=== PATIENT | male | born 1935 | race Caucasian/White ===

== ENCOUNTER 2018-12-01 01:46 | Inpatient (IN) | payer MEDICARE ==
[~2018-12-01] VITALS: Ht 172.7 cm; Wt 84.4 kg
--- NOTE | 2018-12-01 01:46 | NUR ---
PT BIB [facility] WITH A C/O FEVER. PT IS TACHY AND WARM TO THE TOUCH. PT IS ON THE MONITOR AND CONTINUOUS PULSE OX. PT HAS A UROSTOMY BAG. PT HAS HX OF BLADDER AND COLON CA. PT IS AA&OX4. DR. VALENTE IS AT THE BEDSIDE. PT HAS AN 18G IV IN THE RT HAND ICT SUPPORT AND TEST ENGINEERS. 1 L NS INFUSING FROM RESCUE.
--- NOTE | 2018-12-01 01:50 | NUR ---
TYLENOL HELD PER MD UNTIL WE CAN CONFIRM WITH HIS RE: TYLENOL ALLERGY. PT IS DENYING TYLENOL ALLERGY AT THIS TIME.
--- NOTE | 2018-12-01 01:50 | NUR ---
RECTAL TEMP TAKEN. PT TEMP IS 104.5F. COOLING MEASURES DONE. ICE PACKS BILATERAL AXILLA AND COOL FACECLOTHS TO PT'S FOREHEAD.
--- NOTE | 2018-12-01 01:55 | NUR ---
XRAY IN PROGRESS AT THE BEDSIDE.
[2018-12-01] MEDS ORDERED: IBUPROFEN 400 MG TABLET ONE (01:58)
[2018-12-01] MEDS ORDERED: ACETAMINOPHEN ES 500 MG TABLET ONE (01:58)
[2018-12-01] MEDS ORDERED: IBUPROFEN 400 MG TABLET PO ONE (02:00)
[2018-12-01] MEDS ORDERED: ACETAMINOPHEN ES 500 MG TABLET PO ONE (02:00)
[2018-12-01] MEDS ORDERED: IV NS 0.9% 1,000 ML BAG IV ONE ×2 (02:00)
[2018-12-01] MEDS ORDERED: CEFTRIAXONE 1GM BAG (ER ONLY) 1 GM/50 ML PIGGYBACK IV ONE (02:00)
--- NOTE | 2018-12-01 02:00 | NUR ---
DAYLIGHT SAVINGS TIME. TIME CHANGED TO 0300.
[2018-12-01] MEDS ORDERED: CEFTRIAXONE 1GM BAG (ER ONLY) 50 ML IV ONE (03:07)
[2018-12-01 03:13] LABS: APPEARANCE,URINE CLEAR (CLEAR); BILIRUBIN,URINE NEGATIVE (NEGATIVE); BLOOD, URINE 2+ Ery/uL (NEGATIVE); COLOR,URINE YELLOW (YELLOW); KETONES,URINE 1+ (NEGATIVE); LEUKOCYTE ESTERASE ,URINE 3+ (NEGATIVE); NITRITE, URINE POSITIVE (NEGATIVE); PROTEIN,URINE 2+ mg/dl (NEGATIVE); UGLUCOSE NEGATIVE (NEGATIVE); UROBILINOGEN,URINE 0.2 EU/dL (0.2)
--- NOTE | 2018-12-01 03:13 | NUR ---
PT LEFT FOR CT VIA GURNEY.
[2018-12-01 03:14] LABS: BASOPHILS % (AUTO) 0.3 % (0.0-2.0); HEMATOCRIT 39 % (39-51); HEMOGLOBIN 13.2 g/dL (13.5-17.5); LYMPHOCYTES # (AUTO) 0.5 /CMM (0.8-4.8); LYMPHOCYTES % (AUTO) 3.1 % (20.0-44.0); MEAN CORPUSCULAR HGB CONC 33 g/dl (31.0-36.0); MEAN CORPUSCULAR VOLUME 94 fL (80-96); MONOCYTES # (AUTO) 0.7 /CMM (0.1-1.30); NEUTROPHILS # (AUTO) 13.4 /CMM (1.8-8.9); NEUTROPHILS % (AUTO) 91.6 % (43.0-81.0); PLATELET COUNT (AUTO) 152 /CMM (150-450); RED BLOOD CELL COUNT(AUTO) 4.19 MIL/uL (4.5-6.0); WHITE BLOOD COUNT (AUTO) 14.6 K/uL (4.3-11.0)
[2018-12-01 03:19] LABS: BACTERIA,URINE Moderate /HPF (None Seen); SQUAMOUS EPITHELIAL CELL,UR Few /HPF (None Seen); WBC,URINE 21-50 /HPF (0-3)
[2018-12-01 03:21] LABS: CALCIUM, SERUM 8.4 mg/dL (8.5-10.1); CARBON DIOXIDE 22 mmol/L (21-32); CHLORIDE 105 mmol/L (98-107); CREATININE 1.5 mg/dL (0.6-1.3); GLUCOSE 114 mg/dL (74-106); POTASSIUM 3.4 mmol/L (3.5-5.1); SODIUM SERUM 138 mmol/L (136-145); UREA NITROGEN, BLOOD 25 mg/dL (7-18)
[2018-12-01 03:27] LABS: ALANINE AMINOTRANSFERASE 18 U/L (12-78); ALBUMIN 2.9 g/dL (3.4-5.0); ALKALINE PHOSPHATASE 61 U/L (46-116); ASPARTATE AMINOTRANSFERASE 20 U/L (15-37); BILIRUBIN,DIRECT 0.4 mg/dL (0.0-0.2); BILIRUBIN,TOTAL 1.4 mg/dL (0.2-1.0); TOTAL PROTEIN, SERUM 6.5 g/dL (6.4-8.2)
--- NOTE | 2018-12-01 03:30 | NUR ---
PT RETURNED FROM CT.
--- NOTE | 2018-12-01 03:46 | NUR ---
EMPTIED PT'S UROSTOMY BAG. APPROX 250ML YELLOW URINE OUTPUT NOTED.
--- NOTE | 2018-12-01 03:48 | NUR ---
BED ASSIGNED ONE HUNDRED AND SEVENTEEN, BED ONE.
[2018-12-01] MEDS ORDERED: ASPIRIN 325 MG TABLET ONE (03:55)
[2018-12-01] MEDS ORDERED: IBUPROFEN 400 MG TABLET PO PRN (04:00)
[2018-12-01] MEDS ORDERED: MAGNESIUM HYDROXIDE 30 ML UDC PO PRN (04:00)
[2018-12-01] MEDS ORDERED: ZOLPIDEM TARTRATE 5 MG TABLET PO PRN (04:00)
[2018-12-01] MEDS ORDERED: ONDANSETRON HCL/PF 4 MG/2 ML VIAL IVP PRN (04:00)
[2018-12-01] MEDS ORDERED: Z GUARD REMEDY 2 OZ OINT TP PRN (04:00)
[2018-12-01] MEDS ORDERED: ASPIRIN 325 MG TABLET PO ONE (04:00)
[2018-12-01] MEDS ORDERED: POTASSIUM CHLORIDE 20 MEQ TAB.PRT.SR PO ONE (04:00)
--- NOTE | 2018-12-01 04:12 | NUR ---
CALLING REPORT TO KARL NURSE.
--- NOTE | 2018-12-01 04:13 | NUR ---
REPORT GIVEN TO UMER BRITO
[2018-12-01 04:58] VITALS: BP 111/58
[2018-12-01] MEDS: IV NS 0.9% 1,000 ML IV PRN ×2 (05:38→17:10)
[2018-12-01 08:00] VITALS: BP_SYST 104; BP_SYST 107; BP_DIAS 58
[2018-12-01 08:34] LABS: BASOPHILS % (AUTO) 0.1 % (0.0-2.0); HEMATOCRIT 39 % (39-51); HEMOGLOBIN 12.8 g/dL (13.5-17.5); LYMPHOCYTES # (AUTO) 0.6 /CMM (0.8-4.8); MEAN CORPUSCULAR HGB CONC 33 g/dl (31.0-36.0); MEAN CORPUSCULAR VOLUME 95 fL (80-96); MONOCYTES # (AUTO) 1.1 /CMM (0.1-1.30); MONOCYTES % (AUTO) 7.4 % (2.0-12.0); NEUTROPHILS # (AUTO) 12.6 /CMM (1.8-8.9); NEUTROPHILS % (AUTO) 88.5 % (43.0-81.0); PLATELET COUNT (AUTO) 137 /CMM (150-450); RED BLOOD CELL COUNT(AUTO) 4.05 MIL/uL (4.5-6.0); WHITE BLOOD COUNT (AUTO) 14.3 K/uL (4.3-11.0)
[2018-12-01 08:50] LABS: CALCIUM, SERUM 7.6 mg/dL (8.5-10.1); CARBON DIOXIDE 21 mmol/L (21-32); CHLORIDE 108 mmol/L (98-107); CHOLESTEROL 99 mg/dL (<200); CREATININE 1.6 mg/dL (0.6-1.3); GLUCOSE 190 mg/dL (74-106); HDL CHOLESTEROL 46 mg/dL (40-60); LDL 50 mg/dL (0-99); MAGNESIUM 1.7 mg/dL (1.8-2.4); PHOSPHORUS 3.7 mg/dL (2.5-4.9); POTASSIUM 3.8 mmol/L (3.5-5.1); SODIUM SERUM 139 mmol/L (136-145); TRIGLYCERIDES 43 mg/dL (30-150); UREA NITROGEN, BLOOD 24 mg/dL (7-18)
[2018-12-01] MEDS: Magnesium 1GM/D5W 100ML PREMIX 100 ML IV SCH ×2 (11:17→13:25)
[2018-12-01 11:42] LABS: THYROID STIMULATING HORMONE 1.076 uIU/mL (0.358-3.74)
[2018-12-01 12:00] VITALS: BP 126/60
[2018-12-01] MEDS: ENOXAPARIN SODIUM 40 MG/0.4 ML DISP.SYRIN SQ SCH (12:40)
[2018-12-01] MEDS ORDERED: hydrALAZINE HCL 25 MG TABLET PO SCH (13:00)
[2018-12-01 13:11] LABS: CREATININE, URINE 89.4 MG/DL (30.0-125.0)
[2018-12-01] MEDS ORDERED: hydrALAZINE HCL 25 MG TABLET PO PRN (14:00)
[2018-12-01 16:00] VITALS: BP 124/71
[2018-12-01] MEDS ORDERED: POLYVINYL ALCOHOL 15 ML BOTTLE EACHEYE PRN (16:30)
[2018-12-01] MEDS ORDERED: FERROUS SULFATE (325 MG) 325 MG/TAB TABLET PO SCH (17:00)
[2018-12-01] MEDS ORDERED: GABA-532 PO (17:54)
[2018-12-01] MEDS ORDERED: UNK BP MEDICATION PO (17:55)
[2018-12-01 20:00] VITALS: BP_SYST 127; BP_SYST 148; BP_DIAS 75; BP_DIAS 76
[2018-12-01] MEDS ORDERED: ACETAMINOPHEN 325 MG TABLET PO PRN (20:30)
--- NOTE | 2018-12-01 20:30 | NUR ---
SORTING MACHINE ATTENDANT NOTES, PATIENT IN BED AWAKE A/O X4 CHIQUI TO VERBALIZED NEEDS, BREATHING EVEN AND UNLABORED, NO SOB/ACUTE DISTRESS NOTED, IV ACCESS IN RIGHT HAND PATENT AND INTACT, NS 0.9% INFUSING WELL AND PATIENT TOLERATED WELL, WITH TEMP 100.9 NOTED, WILL INFORM MD FOR NEW ORDERS, NOTED UROSTOMY IN PLACE WITH ABOU 100ML OF URINE IN PLACED, BED LOCKED AND IN LOW POSITION, CALL LIGHT W/I REACH, ALL NEEDS PROVIDED, WILL CONTINUE TO MONITOR CLOSELY, INFORMED PATIENT MARION WILL BE NPO FOR TESTS IN THE MORNING AND VERBALIZED UNDERSTANDING.
[2018-12-01] MEDS ORDERED: CEFTRIAXONE 1 G VIAL ONE (20:32)
--- NOTE | 2018-12-01 20:45 | NUR ---
COUNTY TREASURER NOTES, PATIENT NOTED WITH BODY TEMP 100.9 F INFORMED MD BASKETBALL COMMENTATOR AND RECEIVED A NEW ORDERED FOR ACETAMINOPHEN 650MG PO Q6HRS PRN, NOTED AND CARRIED OUT.
[2018-12-02] VITALS (9 sets, daily range): BP systolic 122–156; BP diastolic 56–79
[2018-12-02] MEDS: IV NS 0.9% 1,000 ML IV PRN ×2 (03:58→15:53)
[2018-12-02 06:29] LABS: BASOPHILS % (AUTO) 0.2 % (0.0-2.0); EOSINOPHILS % (AUTO) 0.3 % (0.0-6.0); HEMATOCRIT 39 % (39-51); HEMOGLOBIN 12.9 g/dL (13.5-17.5); LYMPHOCYTES # (AUTO) 0.4 /CMM (0.8-4.8); LYMPHOCYTES % (AUTO) 4.5 % (20.0-44.0); MEAN CORPUSCULAR HGB CONC 33 g/dl (31.0-36.0); MEAN CORPUSCULAR VOLUME 96 fL (80-96); MONOCYTES # (AUTO) 0.6 /CMM (0.1-1.30); MONOCYTES % (AUTO) 7.5 % (2.0-12.0); NEUTROPHILS # (AUTO) 7.2 /CMM (1.8-8.9); NEUTROPHILS % (AUTO) 87.5 % (43.0-81.0); PLATELET COUNT (AUTO) 117 /CMM (150-450); RED BLOOD CELL COUNT(AUTO) 4.03 MIL/uL (4.5-6.0); WHITE BLOOD COUNT (AUTO) 8.3 K/uL (4.3-11.0)
[2018-12-02] MEDS ORDERED: ALBUTEROL FS 2.5 MG/0.5 ML VIAL.NEB NEB PRN (06:30)
[2018-12-02] MEDS ORDERED: IPRATROPIUM NEB FS 0.5 MG/2.5 ML AMPUL.NEB NEB PRN (06:30)
[2018-12-02 06:42] LABS: CALCIUM, SERUM 8.1 mg/dL (8.5-10.1); CARBON DIOXIDE 19 mmol/L (21-32); CHLORIDE 108 mmol/L (98-107); CREATININE 1.4 mg/dL (0.6-1.3); GLUCOSE 94 mg/dL (74-106); POTASSIUM 3.7 mmol/L (3.5-5.1); SODIUM SERUM 140 mmol/L (136-145); UREA NITROGEN, BLOOD 24 mg/dL (7-18)
[2018-12-02 06:43] LABS: ALANINE AMINOTRANSFERASE 22 U/L (12-78); ALBUMIN 2.6 g/dL (3.4-5.0); ALKALINE PHOSPHATASE 62 U/L (46-116); ASPARTATE AMINOTRANSFERASE 27 U/L (15-37); BILIRUBIN,DIRECT 0.2 mg/dL (0.0-0.2); BILIRUBIN,TOTAL 0.8 mg/dL (0.2-1.0); MAGNESIUM 2.3 mg/dL (1.8-2.4); PHOSPHORUS 2.2 mg/dL (2.5-4.9); TOTAL PROTEIN, SERUM 6.1 g/dL (6.4-8.2)
--- NOTE | 2018-12-02 06:45 | NUR ---
RN CLOSING NOTES, PATIENT AWAKE, A/O X4 ABLE TO VERBALIZED NEEDS AND CONCERNS, WATCHING TV AT THIS TIME, NO SIGNIFICANT CHANGE IN CONDITION THROUGHOUT THE NIGHT, NPO SINCE MIDNIGHT FOR US ABDOMEN/KIDNEYS, WILL ENDORSE CONTINUITY OF CARE TO ONCOMING NURSE.
--- NOTE | 2018-12-02 07:24 | NUR ---
MS/RN Patient received Patient received from maintenance supervisor 2nd shift, sleeping at this time, appears in no distress or discomfort. IV fluids infusing at 100ml/hr via right hand 22g. No signs of infiltration seen. NPO for abdominal ultrasound. Call light within reach, bed in low setting, side rails X3 in upright position. Will continue to monitor and ensure safety.
--- NOTE | 2018-12-02 08:45 | NUR ---
MS/RN Lovenox Lovenox administered as ordered.
[2018-12-02] MEDS: ENOXAPARIN SODIUM 40 MG/0.4 ML DISP.SYRIN SQ SCH (08:50)
--- NOTE | 2018-12-02 09:08 | NUR ---
MS/RN Abdominal US Abdominal ultrasound in progress at bedside, breakfast tray ordered.
[2018-12-02] MEDS: NEUTRA PHOS 1 POWD.PACKET PO SCH ×2 (11:35→20:16)
[2018-12-02] MEDS ORDERED: POTASSIUM CHLORIDE 20 MEQ TAB.PRT.SR PO SCH (12:00)
--- NOTE | 2018-12-02 12:30 | NUR ---
MS/RN S/B Dr Larry Seen by MD - discharge plan for when patient is afebrile. Plan of care discussed at bedside with .
--- NOTE | 2018-12-02 17:28 | NUR ---
MS/RN S/B ID Seen by ID - blood cultures X2 15 minutes apart, vancomycin to be started and dosed per pharmacy.
[2018-12-02] MEDS ORDERED: FEE PK DOSING 1 MIN EA MC ONE (17:57)
--- NOTE | 2018-12-02 18:16 | NUR ---
MS/RN End note All needs attended at this time, vancomycin infusing as ordered, no reaction noted. Will endorse to awake overnight monitor.
[2018-12-02] MEDS: VANCOMYCIN 1 GM in IV D5W 250 ML IV SCH (18:54)
--- NOTE | 2018-12-02 20:00 | NUR ---
RN MS NOTES, PATIENT AWAKE, A/O X4 ABLE TO VERBALIZED NEEDS AND CONCERNS, BREATHING EVEN AND UNLABORED, NO SOB/ACUTE DISTRESS NOTED AT THIS TIME, DENIES PAIN OR DISCOMFORT AT THIS TIME, RIGHT HAND IV ACCESS PATENT AND INTACT, IVF INFUSING WELL AND PATIENT TOLERATED WELL, UROSTOMY BAG CHANGE AND EMPTY AT THIS TIME, ALL NEEDS PROVIDED AND SAFETY MEASURES IN PLACED, CALL NIGHT W/I REACH, BILATERAL 1/2 SR OF BED IN PLACED, WILL CONTINUE TO MONITOR CLOSELY.
[2018-12-02] MEDS ORDERED: CEFTRIAXONE 1 G in IV D5W 50 ML IV SCH (21:00)
[2018-12-03 04:00] VITALS: BP 162/78
[2018-12-03] MEDS: IV NS 0.9% 1,000 ML IV PRN (04:15)
--- NOTE | 2018-12-03 04:30 | NUR ---
RN NOTES, NOTED PATIENT WITH BP 162/78, HR 76 ASYMPTOMATIC AT THIS TIME, HYDRALAZINE ADMINISTERED ORDERED, WILL CONTINUE TO MONITOR CLOSELY.
--- NOTE | 2018-12-03 05:20 | NUR ---
RN NOTES, AFTER RECHECK BLOOD PRESSURE, BP NOTED 140/64, 70, WILL CONTINUE TO MONITOR CLOSELY.
[2018-12-03 06:27] LABS: BASOPHILS % (AUTO) 0.3 % (0.0-2.0); EOSINOPHILS % (AUTO) 0.4 % (0.0-6.0); HEMATOCRIT 36 % (39-51); HEMOGLOBIN 12.2 g/dL (13.5-17.5); LYMPHOCYTES # (AUTO) 0.6 /CMM (0.8-4.8); LYMPHOCYTES % (AUTO) 11.6 % (20.0-44.0); MEAN CORPUSCULAR HGB CONC 34 g/dl (31.0-36.0); MEAN CORPUSCULAR VOLUME 94 fL (80-96); MONOCYTES # (AUTO) 0.7 /CMM (0.1-1.30); MONOCYTES % (AUTO) 13.1 % (2.0-12.0); NEUTROPHILS # (AUTO) 3.9 /CMM (1.8-8.9); NEUTROPHILS % (AUTO) 74.6 % (43.0-81.0); PLATELET COUNT (AUTO) 136 /CMM (150-450); RED BLOOD CELL COUNT(AUTO) 3.84 MIL/uL (4.5-6.0); WHITE BLOOD COUNT (AUTO) 5.2 K/uL (4.3-11.0)
[2018-12-03 06:53] LABS: ALANINE AMINOTRANSFERASE 21 U/L (12-78); ALBUMIN 2.5 g/dL (3.4-5.0); ALKALINE PHOSPHATASE 62 U/L (46-116); ASPARTATE AMINOTRANSFERASE 21 U/L (15-37); BILIRUBIN,TOTAL 0.5 mg/dL (0.2-1.0); CARBON DIOXIDE 20 mmol/L (21-32); CHLORIDE 107 mmol/L (98-107); CREATININE 1.3 mg/dL (0.6-1.3); GLUCOSE 94 mg/dL (74-106); MAGNESIUM 1.9 mg/dL (1.8-2.4); PHOSPHORUS 2.4 mg/dL (2.5-4.9); POTASSIUM 3.5 mmol/L (3.5-5.1); SODIUM SERUM 140 mmol/L (136-145); TOTAL PROTEIN, SERUM 6.1 g/dL (6.4-8.2); UREA NITROGEN, BLOOD 17 mg/dL (7-18)
--- NOTE | 2018-12-03 07:00 | NUR ---
RN CLOSING NOTES, PATIENT ON BED WATCHING TV AT THIS TIME, NO SIGNIFICANT CHANGE IN CONDITION THROUGHOUT THE NIGHT, ALL SAFETY MEASURES IN PLACED, CALL SARAH W/I REACH, WILL ENDORSE CONTINUITY OF CARE TO ONCOMING NURSE.
[2018-12-03 07:02] LABS: LYMPHOCYTES % (MANUAL) 15 % (16-48); MONOCYTES % (MANUAL) 12 % (0-11.0); NEUTROPHILS % (MANUAL) 73 (42-76)
--- NOTE | 2018-12-03 07:20 | NUR ---
RN MS OPENING NOTES RECEIVED BEDSIDE REPORT PATIENT AWAKE IN BED. A/O X4 NO COMPLAINTS OF PAIN OR RESPIRATORY DISTRESS NOTED. SKIN INTACT AMBULATORY IN ROOM. DRAINED 200 ML FROM UROSTOMY CLEAR YELLOW URINE. IVF RUNNING TO R HAND NS @ 100ML/HR. SKIN INTACT SAFETY PRECAUTIONS IN PLACE 2X SIDE RAILS. BED IN LOW POSITION CALL LIGHT WITHIN REACH WILL CONT TO MONITOR
[2018-12-03 08:00] VITALS: BP 151/76
--- NOTE | 2018-12-03 08:15 | NUR ---
RN MS NOTES IV DISLODGED AND REMOVED
[2018-12-03] MEDS: ENOXAPARIN SODIUM 40 MG/0.4 ML DISP.SYRIN SQ SCH (08:42)
--- NOTE | 2018-12-03 08:43 | NUR ---
RN MS NOTES YUNIER HELD H&H LOW PLAT 136
[2018-12-03 09:27] VITALS: BP 151/76
[2018-12-03] MEDS ORDERED: K PHOS NEUTRAL 250 MG TABLET PO ONE (11:30)
[2018-12-03] MEDS: VANCOMYCIN 1 GM in IV D5W 250 ML IV SCH (11:31)
[2018-12-03] MEDS ORDERED: CEFP200T14 PO (15:51)
[2018-12-03 16:00] VITALS: BP_SYST 151; BP_DIAS 76; BP_DIAS 86
--- NOTE | 2018-12-03 17:55 | NUR ---
RN MS DISCHARGE NOTES PATIENT DISCHARGED TO HOME WITH AND MOTHER IN LAW. IV REMOVED CATH INTACT. ALL NEW MEDICATIONS EXPLAINED TO ALONG WITH EXIT CARE. RX GIVEN AND EXPLAINED IMPORTANCE OF MEDS AND NOT CONSUMING ALCOHOL. VITALS STABLE 97.8 HR 70 RR 20 O2 96 BP 151/86.
[2018-12-03] MEDS ORDERED: CEFUROXIME AXETIL 250 MG TABLET PO SCH (21:00)
== END 2018-12-03 16:30 | disposition home or self-care (01) | DRG 871 ==
LOC: ER 01:53 → TELE-TD 04:13 → TELE1 11:23 → MEDSG1 12-02 15:25
PROVIDERS: ADMIT Student in an Organized Health Care Education/Training Program; ATTEND Internal Medicine
DX: A41.9 Sepsis, unspecified organism (principal); I21.A1 Myocardial infarction type 2; E44.1 Mild protein-calorie malnutrition; N17.9 Acute kidney failure, unspecified; N39.0 Urinary tract infection, site not specified; E83.42 Hypomagnesemia; D69.6 Thrombocytopenia, unspecified; D50.9 Iron deficiency anemia, unspecified; E80.6 Other disorders of bilirubin metabolism; Z85.51 Personal history of malignant neoplasm of bladder; Z85.038 Personal history of other malignant neoplasm of large intestine; Z90.79 Acquired absence of other genital organ(s); Z93.6 Other artificial openings of urinary tract status; F10.20 Alcohol dependence, uncomplicated; R16.2 Hepatomegaly with splenomegaly, not elsewhere classified; M54.5 Low back pain; N18.9 Chronic kidney disease, unspecified; I12.9 Hypertensive chronic kidney disease with stage 1 through stage 4 chronic kidney disease, or unspecified chronic kidney disease; B95.5 Unspecified streptococcus as the cause of diseases classified elsewhere; B96.89 Other specified bacterial agents as the cause of diseases classified elsewhere
CPT/HCPCS: 36415; 70450-TC; 71045-TC; 76700-TC; 80048-TC; 80053-TC; 80061-TC; 80076-TC; 81000-TC; 82570-TC; 82728-TC; 83540-TC; 83605-TC; 83735-TC; 84100-TC; 84300-TC; 84439-TC; 84443-TC; 84484-TC; 85025-TC; 85730-TC; 87040-TC; 87081-TC; 87086-TC; 87186-TC; 93307-TC; A4216; G0378; J0696; J1650; J3370; J3475; J7030; J7040; J7060